=== PATIENT | female | born 1945 | race Hispanic/Latino ===

== ENCOUNTER 2023-05-11 13:39 | Emergency (ER) | payer MEDICARE, MEDICAID ==
[~2023-05-11] VITALS: Ht 152.4 cm; Wt 81.6 kg
[2023-05-11 14:22] LABS: RAPID GROUP A STREP negative (NEGATIVE)
[2023-05-11 14:26] LABS: SARS-CoV-2, RNA, NAAT NEGATIVE SARS CoV-2 (NEGATIVE)
[2023-05-11] MEDS ORDERED: ALBUTEROL 0.083% 2.5 MG/3 ML INH IH ONE (14:30)
[2023-05-11 14:31] VITALS: PULSE 77; RESP 18
[2023-05-11 14:32] LABS: INFLUENZA TYPE B Negative For Type B (NEGATIVE)
[2023-05-11 14:35] LABS: INFLUENZA TYPE A Positive For Type A (NEGATIVE)
[2023-05-11 14:52] VITALS: BP 105/53; PULSE 80; RESP 18; O2SAT 96
[2023-05-11] MEDS ORDERED: BENZ-39 PO (15:11)
[2023-05-11] MEDS ORDERED: OSEL75 PO (15:11)
[2023-05-11] MEDS ORDERED: ALBU18HF7 IH (15:11)
== END 2023-05-11 15:31 | disposition home or self-care (01) ==
LOC: EDH 13:39
DX: J10.1 Influenza due to other identified influenza virus with other respiratory manifestations (principal); R05.9 Cough, unspecified; R06.00 Dyspnea, unspecified; E78.00 Pure hypercholesterolemia, unspecified; E11.9 Type 2 diabetes mellitus without complications; F03.90 Unspecified dementia, unspecified severity, without behavioral disturbance, psychotic disturbance, mood disturbance, and anxiety; Z90.710 Acquired absence of both cervix and uterus; Z90.49 Acquired absence of other specified parts of digestive tract; Z20.822 Contact with and (suspected) exposure to COVID-19
CPT/HCPCS: 99284; 71045; 87635; 87880; 87804 ×2; 94640; C9803

== ENCOUNTER 2023-11-25 10:05 | Emergency (ER) | payer MEDICARE ==
[~2023-11-25] VITALS: Ht 152.4 cm; Wt 79.4 kg
[~2023-11-25 10:05] MED LIST: ALBU18HF7 IH; INSLAN SQ; LEVO750T68 PO
[2023-11-25] MEDS: ACETAMINOPHEN 500 MG TABLET PO ONE (10:32)
[2023-11-25 10:49] VITALS: BP 121/51; PULSE 84; RESP 16; O2SAT 99
== END 2023-11-25 10:53 | disposition home or self-care (01) ==
LOC: EDH 10:05
DX: M79.645 Pain in left finger(s) (principal); F03.90 Unspecified dementia, unspecified severity, without behavioral disturbance, psychotic disturbance, mood disturbance, and anxiety; E11.9 Type 2 diabetes mellitus without complications; E78.00 Pure hypercholesterolemia, unspecified; K21.9 Gastro-esophageal reflux disease without esophagitis; Z90.49 Acquired absence of other specified parts of digestive tract; Z90.710 Acquired absence of both cervix and uterus
CPT/HCPCS: 73130; 73140